=== PATIENT | male | born 1950 | race Caucasian/White ===

== ENCOUNTER 2021-07-13 07:44 | Inpatient (IN) | payer MEDICARE, OTHER ==
[~2021-07-13] VITALS: Ht 185.4 cm; Wt 107.6 kg
[~2021-07-13 07:44] MED LIST: AMOCLA875 PO
[2021-07-13 09:46] LABS: BASOPHILS ABSOLUTE AUTO 0.04 K/mm3 (0.00-0.23); BASOPHILS PERCENT AUTO 0 % (0-2); EOSINOPHILS ABSOLUTE AUTO 0.08 K/mm3 (0.00-0.68); EOSINOPHILS PERCENT AUTO 1 % (0-6); Hematocrit 50.9 % (37.0-53.0); IMMATURE GRAN ABSOLUTE AUTO 0.03 K/mm3 (0.00-0.10); IMMATURE GRAN PERCENT AUTO 0 % (0-1); LYMPHOCYTES ABSOLUTE AUTO 1.03 K/mm3 (0.84-5.20); LYMPHOCYTES PERCENT AUTO 10 % (21-46); MONOCYTES PERCENT AUTO 5 % (4-13); Mean Corpuscular HGB 28.8 pg (26.0-34.0); Mean Corpuscular HGB Conc 33.4 g/dL (31.5-36.5); Mean Corpuscular Volume 86 fL (80-100); NEUTROPHILS ABSOLUTE AUTO 8.93 K/mm3 (1.96-9.15); NEUTROPHILS PERCENT AUTO 84 % (41-73); Platelet Count 211 K/mm3 (150-400); RDW Standard Deviation 40.7 fL (35.1-46.3); White Blood Cell Count 10.61 K/mm3 (4.00-11.30)
[2021-07-13 10:07] LABS: Albumin/Globulin Ratio 0.9 (0.8-1.8); Bilirubin, Total 0.6 mg/dL (0.1-1.0); Bun/Creatinine Ratio 18.2 (12.0-20.0); Calcium, Blood 9.1 mg/dL (8.5-10.1); Creatinine, Blood 0.94 mg/dL (0.60-1.20); Globulin, Blood 4.3 g/dL (2.2-4.0); Magnesium, Blood 2.4 mg/dL (1.6-2.4); Potassium, Blood 4.3 mmol/L (3.5-5.5); Total Protein, Blood 8.3 g/dL (6.4-8.2)
[2021-07-13 12:10] LABS: Source, Urine Voided
[2021-07-13 12:29] LABS: Appearance, Urine Clear (Clear); Bilirubin, Urine Neg (Neg); Blood, Urine Neg (Neg); Color, Urine Yellow (P-Yellow); Glucose Qualitative, Urine Neg (Neg); Ketones, Urine Neg (Neg); Leukocyte Esterase, Urine Neg (Neg); Nitrite, Urine Neg (Neg); Protein, Urine 2+ (Neg); Urobilinogen, Urine NORM (Normal)
[2021-07-13 12:48] LABS: Bacteria Few /hpf; Squamous Epithelial Cells Not Seen /hpf (Few)
[2021-07-13 12:50] LABS: Hyaline Casts 0-2 /lpf (0-2); Mucus Mod (0-Heavy)
[2021-07-13] MEDS ORDERED: LOTREL 10-20 M1 EACH PO (14:49)
[2021-07-14 04:32] LABS: BASOPHILS ABSOLUTE AUTO 0.06 K/mm3 (0.00-0.23); BASOPHILS PERCENT AUTO 1 % (0-2); EOSINOPHILS ABSOLUTE AUTO 0.13 K/mm3 (0.00-0.68); EOSINOPHILS PERCENT AUTO 1 % (0-6); Hematocrit 47.5 % (37.0-53.0); Hemoglobin 15.9 g/dL (13.5-17.5); IMMATURE GRAN ABSOLUTE AUTO 0.02 K/mm3 (0.00-0.10); IMMATURE GRAN PERCENT AUTO 0 % (0-1); LYMPHOCYTES ABSOLUTE AUTO 1.79 K/mm3 (0.84-5.20); LYMPHOCYTES PERCENT AUTO 17 % (21-46); MONOCYTES PERCENT AUTO 9 % (4-13); Mean Corpuscular HGB 28.8 pg (26.0-34.0); Mean Corpuscular HGB Conc 33.5 g/dL (31.5-36.5); Mean Corpuscular Volume 86 fL (80-100); Mean Platelet Volume 10.5 fL (9.1-12.4); NEUTROPHILS ABSOLUTE AUTO 7.51 K/mm3 (1.96-9.15); NEUTROPHILS PERCENT AUTO 72 % (41-73); Platelet Count 222 K/mm3 (150-400); RDW Coefficient Variation 13.2 % (11.7-14.2); RDW Standard Deviation 41.3 fL (35.1-46.3); Red Blood Cell Count 5.53 M/mm3 (4.30-5.90); White Blood Cell Count 10.41 K/mm3 (4.00-11.30)
--- NOTE | 2021-07-14 04:58 | NUR ---
UPDATE PHYSICIAN NOTIFIED. PT HAVING NEW NEURO CHANGES. PT FEELS THOUGH "ANTS" ARE CRAWLING ON L ARM. PT SLOW TO RESPOND, HAVING DIFFICULTY FINDING "RIGHT" WORDS. ORDERS FOR 250 ML BOLUS, PT MAY HAVE HAD TOO RAPID DECREASE IN BP PER PHYSICIAN. WILL CONT TO MONITOR.
[2021-07-14 05:00] LABS: Albumin, Blood 3.7 g/dL (3.4-5.0); Bilirubin, Total 0.8 mg/dL (0.1-1.0); Bun/Creatinine Ratio 19.1 (12.0-20.0); Calcium, Blood 8.6 mg/dL (8.5-10.1); Creatinine, Blood 0.89 mg/dL (0.60-1.20); Globulin, Blood 3.8 g/dL (2.2-4.0); Potassium, Blood 3.5 mmol/L (3.5-5.5); Total Protein, Blood 7.5 g/dL (6.4-8.2)
--- NOTE | 2021-07-14 06:00 | NUR ---
UPDATE PT HAVING R ARM WEAKNESS. NO WEAKNESS IN R LEG, NO FACIAL DROOPING, PUPILS EQUAL REACTIVE. PHYSICIAN NOTIFIED OF NEW WEAKNESS. PHYSICIAN AT BEDSIDE TO SEE PT, NEURO CHECK DONE WITH PHYSICIAN AT BEDSIDE. PHYSICIAN TO PLACE ORDERS. WILL CONT TO MONITOR.
--- NOTE | 2021-07-14 06:29 | NUR ---
SHIFT SUMMARY PT ALERT AND ORIENTED X 4. HR STABLE. BP HYPERTENSIVE UPON ARRIVAL TO UNIT, SYSTOLIC BP OVER 190, MEDICATED, SEE EMAR. BP STABLE AT THIS TIME. NO CP OR PRESSURE. PT HAVING INCREASE IN NEURO DEFICITS THIS AM. R SIDED VISUAL FIELD DEFICIT WITH NEW R ARM DRIFT AND WEAKNESS. POULTRY EVISCERATOR STRENGTH STRONG BUE, NO NEW WEAKNESS IN BLE. PUPILS REACTIVE, NO FACIAL DROOPING. PHYSICIAN AT BEDSIDE, SEE NOTES. PLAN FOR MRI THIS AM PER PHYSICIAN. BED ALARM IN PLACE. CALL LIGHT WITHIN REACH. WILL CONT TO MONITOR UNTIL REPORT GIVEN TO DAYSHIFT RN.
--- NOTE | 2021-07-14 07:32 | NUR ---
UPDATE ATTEMPTED TO CONTACT FOR PT UPDATE. NO ANSWER AT THIS TIME.
--- NOTE | 2021-07-14 07:40 | NUR ---
UPDATED AT THIS TIME
[2021-07-14 07:59] LABS: CHOL/HDL RATIO 4.9; Cholesterol 206 mg/dL (50-200); HDL Cholesterol 42 mg/dL (>39); LDL/HDL RATIO 3.2; Low Density Lipoprotein Chol 134 mg/dL (0-110); Triglycerides 148 mg/dL (30-160); Very Low Density Lipoprot Chol 29 mg/dL (6-32)
--- NOTE | 2021-07-14 09:51 | NUR ---
NURSING PCU DAYSHIFT: Assumed care of pt at approx 0700. R side defecit including weakness of R ext's and reduced R side fine motor skills. Mild R facial droop, no significant tongue deviation, sensation present t/o with improvement of previously reported tingling. R vision imparement noted and consistent w/previous reports. Alert and appears oriented though at times unaware of the extent of R sided defecits. Attempted to ambulate which was difficult d/t reduced control of RLE and increased leaning to R side. Able to stand and march in place w/two staff assist. Follows simple commands though has difficulty w/complex or multiple step instructions. Able to converse/communicate, speech slow at times. Tele in place, NSR, hypertensive w/SBP 190-200's, no c/o CP/pressure, trace BLE edema. L/S cta t/o, no noted dyspnea or cough, O2 sat upper 90's on RA. Abd SNT, BT+, voiding w/assistance, scrotum enlarged which is normal per pt. PIV x2, s/l, flush well. Pt resting comfortably in bed at this time. PRN hydralazine administered, MRI for completed, plan of care discussed. Pt was a bit tearful this a.m. while discussing current medical status though remains optimistic. Awaiting rounding from PMD, call light in reach though safety alarms set for safety purposes. Cont to monitor for any changes.
--- NOTE | 2021-07-14 17:59 | NUR ---
NURSING PCU DAYSHIFT SUMMARY: Pt has done well t/o the shift. Remains hypertensive though improved since hydralazine administration this a.m. MRI completed, results reviewed by PMD, new d/o received, neuro consult initiated. Pt continues to experience R side deficit, unchanged from this a.m. Worked w/PT/OT, tolerated well and is motivated to rehab, recommendation for discharge to IRU, caretaker grounds aware. S/O currently at bedside. PT and s/o deny any current needs or questions regarding plan of care. Call light in reach and bed alarm set for safety purposes. Cont to monitor until rpt is given to NOC RN.
--- NOTE | 2021-07-14 19:50 | NUR ---
DR. DAVIDSON BEDSIDE
--- NOTE | 2021-07-14 20:17 | NUR ---
DR. DAVIDSON IN ROOM WHEN BP TAKEN; 175/106; ORDERS FOR PRN HYDRALAZINE FOR SBP OVER 190; ORDERS TO KEEP ORDERS THE SAME FOR FIRST 24-48 HOURS; MD SHEEHAN WITH BP.
--- NOTE | 2021-07-14 20:24 | NUR ---
ASSUMED CARE OF PATIENT AT APPROXIMATELY 1910 FROM NOEL Gomez RN. PATIENT ALET AND ORIENTED X4. PATIENT DENIES CP/PRESSURE, PAIN ELSEWHERE, NUMBNESS, TINGLING, DIZZINESS OR NAUSEA. PATIENT REPORTS DIZZINESS ONCE THIS MORNING FROM GETTING UP TOO QUICKLY. MEDICAL TELE STATUS; NSR ON TELE; OXYGEN SATURATION ABOVE 90% ON ROOM AIR. PIV X2. PATIENT'S REPORTS DURING BEDSIDE REPORT THAT PATIENT GOT UP AND USED BATHROOM AND BRUSHED TEETH; ASSISTED; PATIENT EDUCATED ON CALLING BEFORE AMBULATION.
--- NOTE | 2021-07-14 22:40 | NUR ---
KAREN RANDOLPH REPORTS PATIENT HAD REMOVED TELE AND PLACED STICKERS ON BED; PATIENT REPORTS TO KAREN RANDOLPH HE TURNED OFF THE BED ALARM BECAUSE HE DIDNT WANT TO WAKE ANYBODY UP AND WENT TO THE BATHROOM INDEPENDENTLY.
--- NOTE | 2021-07-14 22:55 | NUR ---
PATIENT ATTEMPTING TO SIT ON SIDE OF BED AND REPORTS HE IS BORED; PATIENT HAD REMOVED GOWN AND REPORTS HE IS WARM; BEDSIDE FAN GIVEN PER REQUEST.
--- NOTE | 2021-07-14 22:57 | NUR ---
PATIENT SITTING ON SIDE OF BED AGAIN AND MOVING ARMS AROUND; REPORTS HE IS TESTING HIS VISION AGAIN AND PATIENT REPORTS HE FEELS IT MIGHT BE GETTING BETTER IN HIS RIGHT EYE.
--- NOTE | 2021-07-15 00:20 | NUR ---
REPORT GIVEN TO JOSE Olivarez RN ON MEDICAL FLOOR. PATIENT TO BE TRANSFERRED TO ROOM 352 WITH BELONGING AND CHART VIA WHEEL CHAIR. ATTEMPTED TO CALL TWICE (NUMBER NOT LISTED IN CHART [phone]) FOR UPDATE AND NOTIFY OF TRANSFER BUT NO ANSWER.
--- NOTE | 2021-07-15 05:00 | NUR ---
CREDIT REFERENCE CLERK SUMMARY PT TRANSFERED FROM [facility] TONIGHT. PT AAOX3 AND PLEASANT. STANDBY ASSIST W/ FWW DUE TO PT STILL BEING A BIT UNSTEADY R/T SOME MILD R SIDE DEFECITS. PT STATES R SIDE WEAKNESS AND CHANGES IN HIS PERIPHERAL VISION OF THE R EYE ARE "REALLY IMPROVED". BP STABLE SINCE ARRIVING TO UNIT, 140S OVER 80S ON ARRIVAL. PT ORIENTED BUT DOES SOMETIMES HAVE DIFFICULTIES EXPRESSING WHAT HE'S TRYING TO SAY OR PUT IT INTO SENTENCES. PT ALSO SEEMS TO HAVE A BIT OF FORGETFULNESS/CONFUSION ON OCCASION. BED ALARM ON FOR SAFETY PT DOES NOT ALWAYS USE CALL LIGHT TO CALL FOR ASSISTANCE. CALL LIGHT IN REACH.
[2021-07-15 05:27] LABS: BASOPHILS ABSOLUTE AUTO 0.06 K/mm3 (0.00-0.23); BASOPHILS PERCENT AUTO 1 % (0-2); EOSINOPHILS ABSOLUTE AUTO 0.18 K/mm3 (0.00-0.68); EOSINOPHILS PERCENT AUTO 2 % (0-6); Hematocrit 46.6 % (37.0-53.0); Hemoglobin 15.5 g/dL (13.5-17.5); IMMATURE GRAN ABSOLUTE AUTO 0.05 K/mm3 (0.00-0.10); IMMATURE GRAN PERCENT AUTO 1 % (0-1); LYMPHOCYTES ABSOLUTE AUTO 1.79 K/mm3 (0.84-5.20); LYMPHOCYTES PERCENT AUTO 18 % (21-46); MONOCYTES ABSOLUTE AUTO 0.92 K/mm3 (0.16-1.47); MONOCYTES PERCENT AUTO 9 % (4-13); Mean Corpuscular HGB 28.8 pg (26.0-34.0); Mean Corpuscular HGB Conc 33.3 g/dL (31.5-36.5); Mean Corpuscular Volume 87 fL (80-100); Mean Platelet Volume 9.9 fL (9.1-12.4); NEUTROPHILS ABSOLUTE AUTO 6.95 K/mm3 (1.96-9.15); NEUTROPHILS PERCENT AUTO 70 % (41-73); Platelet Count 198 K/mm3 (150-400); RDW Coefficient Variation 13.5 % (11.7-14.2); RDW Standard Deviation 43.1 fL (35.1-46.3); Red Blood Cell Count 5.39 M/mm3 (4.30-5.90); White Blood Cell Count 9.95 K/mm3 (4.00-11.30)
[2021-07-15 05:49] LABS: Albumin, Blood 3.6 g/dL (3.4-5.0); Albumin/Globulin Ratio 0.9 (0.8-1.8); Bilirubin, Total 1.2 mg/dL (0.1-1.0); Calcium, Blood 9.1 mg/dL (8.5-10.1); Globulin, Blood 3.8 g/dL (2.2-4.0); Potassium, Blood 3.8 mmol/L (3.5-5.5); Total Protein, Blood 7.4 g/dL (6.4-8.2)
--- NOTE | 2021-07-15 16:26 | NUR ---
SHIFT SUMMARY PATIENT IS ALERT AND ORIENTED X3, MILD CONFUSION AT TIMES DUE TO STROKE. PATIENT WORKED WITH PHYSICAL THERAPY AND OT TODAY. PATIENT CONTINUES TO HAVE HEMIOANOPIA ON THE RIGHT SIDE. THE PATIENT IS REPETITIVE AT TIMES. PATIENT NEEDS REASSURANCE. PATIENT HAS HAD SPOUSE AT BEDSIDE FOR MOST OF THE DAY. NO ACUTE CHANGES. CALL LIGHT WITHIN REACH.
--- NOTE | 2021-07-16 05:09 | NUR ---
SHIFT SUMMARY: PT IS A VERY PLEASANT MAN AND WAS COOPERATIVE WITH ALL CARE. PER TELE MONITOR: SR/67. HE IS A 1 PA, GAIT BELT TO THE BR. HE DID START HIS SCHEDULED AMLODIPINE AT 2100. PT'S HAD QUESTIONS FOR THE MD ABOUT A POSSIBLE ANGIOGRAM AND A CARDIOLOGY CONSULT DUE TO THE PT'S FAMILY CARDIAC HX. THERE ARE NO CHANGES TO REPORT THIS NOC SHIFT.
[2021-07-16] MEDS ORDERED: ATOR80 PO (13:03)
[2021-07-16] MEDS ORDERED: CLOP75 PO (13:04)
[2021-07-16] MEDS ORDERED: LISI20 PO (13:05)
[2021-07-16] MEDS ORDERED: HYDR10 PO (13:06)
--- NOTE | 2021-07-16 18:22 | NUR ---
DISCHARGE NOTE PATIENT DISCHARGED WITH SPOUSE AT 1730 TODAY VIA WHEELCHAIR TO THE CAR. THE PATIENT AND SPOUSE WERE GIVEN DISCHARGE INSTRUCTIONS. IV DISCONTINED. PATIENT AND SPOUSE UNDERSTOOD INFORMATION GIVEN. PATIENT AND SPOUSE GIVEN OUTPATIENT THERAPY SCRIPT FROM DR. ALLEN. HANDOUTS GIVEN FOR AIM THERAPY. HEART HEALTHY DIET EDUCATION GIVEN TO PATIENT. PATIENT WILL CALL TO SET UP APPT WITH DR. DAVIDSON IN 3 TO 4 WEEKS. SPOUSE WAS NOTIFIED OF DISCHARGE AROUND LUNCH TODAY. SPOUSE HAD A HARD TIME PICKING UP MEDS AT [facility] BEFORE THEY CLOSED. PATIENT WILL GET MEDS IN THE MORNING.
== END 2021-07-16 17:54 | disposition home or self-care (01) | DRG 65 ==
LOC: ER 07:44 → PCU 07:45 → MEDS 07-15 00:45
PROVIDERS: Emergency Medicine; Family Medicine; Internal Medicine; Physician Assistant; ADMIT Internal Medicine
DX: I63.89 Other cerebral infarction (principal); G81.91 Hemiplegia, unspecified affecting right dominant side; I16.1 Hypertensive emergency; H53.461 Homonymous bilateral field defects, right side; E78.5 Hyperlipidemia, unspecified; I10 Essential (primary) hypertension
CPT/HCPCS: 36415; 70450; 70551; 80053; 80061; 81001; 83735; 84484; 85025; 93005; 93010; 93306; 93880; 96372; 96374; 96376; 97110; 97112; 97129; 97130; 97162; 97166; 97530; 99285-25; A9270; G0378; J0360; J1650; J7030